=== PATIENT | male | born 1950 | race Two or more races ===

== ENCOUNTER 2021-10-29 10:10 | Outpatient (REF) | payer MEDICARE, SELFPAY ==
--- NOTE | ~2021-10-29 | XR_ITS ---
EXAMINATION: XR SACROILIAC JOINTS CLINICAL INFORMATION: Pain COMPARISON: None TECHNIQUE: 3 views of the sacroiliac joints FINDINGS: Bones and soft tissues are normal. No fracture. Alignment is anatomic. Sacroiliac joint spaces are well-maintained without erosions or surrounding sclerosis. XR/XR sacroiliac joint min 3V IMPRESSION: Normal sacroiliac joints.
== END 2021-10-29 10:11 | disposition home or self-care (01) ==
LOC: HO.XRAY 10:10
PROVIDERS: PCP Internal Medicine; Visit Provider Internal Medicine
DX: M53.3 Sacrococcygeal disorders, not elsewhere classified (principal)
CPT/HCPCS: 72202

== ENCOUNTER → 2021-12-04 10:48 | Outpatient (BNVA) | payer MEDICARE, SELFPAY | PROVIDERS: PCP Internal Medicine; Referring Provider Internal Medicine; Visit Provider Surgery | DX: R22.42 Localized swelling, mass and lump, left lower limb (principal) | CPT/HCPCS: 99202 ==

== ENCOUNTER 2022-01-29 13:28 | Outpatient (REF) | payer OTHER, SELFPAY ==
[2022-01-29 13:41] VITALS: BP 114/56; PULSE 56; RESP 18; TEMP 36.8; O2SAT 96; BMI 26.6
--- NOTE | 2022-01-29 14:12 | P.OP_ITS ---
Operative Note Operative Note Date of Service: 01/29/22 Narrative: Preop diagnosis: Subcutaneous nodule, left foot at the plantar aspect Postop diagnosis: the same Procedure: Excision of subcutaneous nodule, plantar aspect of the left foot under local anesthesia Surgeon: Tom Ramirez MD Patient is 71-year-old male with a nodule or mass subcutaneous layer of the left foot about 1 cm in diameter. He wanted proceed with excision. In this to the technique of the procedure as well as the risks, benefits, and alternatives . He was brought to the minor procedure room. He was placed in lateral decubitus position to allow exposure of the plantar aspect. This area of the left foot was prepped and draped. Lidocaine 1% was used for local anesthesia. A surgical time-out had been done earlier. I infiltrated the planned line of incision with lidocaine 1%. I made a trans verse incision using blade 15. This carried down sharply to the full-thickness skin and subcutaneous fat. I then proceeded to continue to dissect sharply the Metzenbaum scissors until I was able to see a mass that appeared to be not well- defined, with thick and fiber fibrotic consistency. I sharply dissected this off of the rest of the subcutaneous layer until this was delivered and sent as specimen. This was about 1 cm in diameter . I irrigated the area of excision and closed the incision with full-thickness nylon 3-0 interrupted sutures. Dressings were applied. The procedure was then completed. The patient tolerated procedure well. There were no complications noted. Estimated blood loss about 5 cc The patient was given wound care instructions and will be seen in the office for follow-up visit for removal sutures.
== END 2022-01-29 13:29 | disposition home or self-care (01) ==
LOC: HO.MS 13:28
PROVIDERS: PCP Internal Medicine; Visit Provider Surgery
PROC: (CPT 11422; principal; 2022-01-29 14:00)
DX: R22.42 Localized swelling, mass and lump, left lower limb (principal)
CPT/HCPCS: 11422; 88304; 88305

== ENCOUNTER → 2022-02-11 13:53 | Outpatient (BNVA) | payer OTHER, SELFPAY | PROVIDERS: PCP Internal Medicine; Visit Provider Surgery | DX: Z48.817 Encounter for surgical aftercare following surgery on the skin and subcutaneous tissue (principal); Z87.2 Personal history of diseases of the skin and subcutaneous tissue | CPT/HCPCS: 99212 ==

== ENCOUNTER 2022-03-05 13:06 | Outpatient (REF) | payer OTHER, SELFPAY ==
--- NOTE | ~2022-03-05 | US_ITS ---
EXAMINATION: US SCROTUM CLINICAL INFORMATION: Left testicular lump. COMPARISON: None TECHNIQUE: A sonogram of the scrotum was performed assessing schwartz-scale appearance and color Doppler flow. Spectral Doppler analysis of the arterial and venous flow were performed in the testes bilaterally. FINDINGS: RIGHT: Right testicle measures 3.73 x 1.82 x 3.37 cm, volume 12.0 mL. No focal testicular parenchymal lesions are visualized. Spectral Doppler analysis of the arterial and venous flow is normal in the right testis. Right epididymal head is normal except for a small epididymal cyst measuring 0.20 x 0.19 x 0.28 cm. There is a small right hydrocele. No right varicocele is seen. Right epididymal Doppler flow is normal. LEFT: Left testicle measures 2.94 x 1.76 x 2.84 cm, volume 7.82 mL. No focal testicular parenchymal lesions are visualized. Spectral Doppler analysis of the arterial and venous flow is normal in the left testis. Left epididymal head is normal in size with an anechoic cyst measuring 0.31 x 0.19 x 0.18 cm. There is a small left hydrocele is seen. Also visualized is a small left varicocele. Left epididymal Doppler flow is normal. US/US scrotum IMPRESSION: Bilateral epididymal head cysts and bilateral hydroceles. Small left varicocele. Otherwise both testes are unremarkable.
== END 2022-03-05 13:07 | disposition home or self-care (01) ==
LOC: HO.HMGCX 13:06
PROVIDERS: Visit Provider Internal Medicine
DX: N50.89 Other specified disorders of the male genital organs (principal)
CPT/HCPCS: 76870

== ENCOUNTER 2022-09-10 15:07 | Outpatient (AMB) | payer OTHER, SELFPAY ==
--- NOTE | 2022-09-07 16:02 | MHC.OFFVIS ---
Intake Intake Visit Reasons: Left hydrocele Intake Note: Patient is present for left hydrocele Allergies No Known Drug Allergies Allergy (Unknown, Verified 02/11/22 14:20) None acetaminophen Adverse Reaction (Severe, Verified 02/11/22 14:20) Unknown HPI HPI Comments History of Present Illness Details Yovanny is a pleasant male. He is seen for the following urologic conditions - left hydrocele - erectile dysfunction Left hydrocele Mild Reassurance provided Discussed time point of intervention Erectile dysfunction Progressive Discussed medication options PFSH Medical History Hypertension Subcutaneous nodule of left foot Surgical History Subcutaneous nodule of foot (~01/29/22) Social History Alcohol intake: never Patient Tobacco Use Status: Never used Tobacco Review of Systems Const Denies chills and Denies fever(s) Card Reports no additional complaints and Denies syncope Resp Denies cough GI Denies abdominal pain and Denies heartburn Reports as per HPI and Denies change in libido Neuro Denies syncope Psych Denies change in libido Endo Denies change in libido Physical Exam Const General: cooperative, healthy appearing, comfortable and no acute distress Orientation/consciousness: patient oriented x3 HEENT Face and sinus: Yes normal facial exam Mouth: moist mucous membranes Neck Neck: Yes normal visual inspection, Yes full ROM and Yes trachea midline Chest Chest palpation & inspection: normal inspection of the chest Resp Effort & Inspection: normal respiratory effort, able to speak in complete sentences and no respiratory distress GI Inspection: Yes normal to inspection Back/Spine/Pelvis Cervical Spine: normal cervical lordosis Thoracic/Lumbar Spine: thoracic and lumbar spine normal to inspection Skin General skin exam: no rashes or lesions noted Neuro General: patient oriented x3, gait normal, tone normal and moves all extremities Extrem General: Yes normal to inspection and Yes capillary refill normal Assessment & Plan Assessment & Plan (1) Erectile dysfunction: Code(s): N52.9 - Male erectile dysfunction, unspecified Plan P.r.n. follow-up Patient Instructions: Imaging studies, laboratory and physical exam results were discussed and reviewed in detail. No major barriers to patient understanding were identified. An opportunity to ask questions regarding the treatment plan was provided. All questions were answered. The patient expressed understanding and agreement with the above treatment plan. The patient is aware they should contact our office by phone for worsening of their current condition or the appearance of new urologic symptoms. Compliance is encouraged with any medications and followup testing that is ordered. It is a privilege to participate in the urologic care of your patient. If you have any questions or concerns regarding treatment for the above conditions, or other urologic issues, please do not hesitate to contact me. The office telephone contact is [phone]. This note is constructed using voice recognition software. While every effort has been made to ensure accuracy community assistant errors may have been included. Yours sincerely, Dr Delonte Dumont MD, [facility] - Urology Providers of Expert, Compassionate Care for the Genitourinary System Coding Level of Care Code New Pt Level 3 (46866) Diagnoses Erectile dysfunction N52.9
== END 2022-09-10 16:32 | disposition home or self-care (01) ==
LOC: HO.HUSH 15:07
PROVIDERS: PCP Internal Medicine; Visit Provider Urology
DX: N52.9 Male erectile dysfunction, unspecified (principal)
CPT/HCPCS: 99203; 99499

== ENCOUNTER → 2022-09-10 15:07 | Outpatient (BNVA) | payer OTHER, SELFPAY | PROVIDERS: PCP Internal Medicine; Visit Provider Urology | DX: N52.9 Male erectile dysfunction, unspecified (principal) | CPT/HCPCS: 99202 ==

== ENCOUNTER 2023-07-30 09:46 | Outpatient (REF) | payer OTHER, SELFPAY ==
[2023-07-30 15:17] LABS: Vitamin B12 587 pg/mL (200-900)
== END 2023-07-30 09:47 | disposition home or self-care (01) ==
LOC: HO.CHCLDS 09:46
PROVIDERS: Visit Provider Internal Medicine
DX: E53.8 Deficiency of other specified B group vitamins (principal)
CPT/HCPCS: 36415; 82607

== ENCOUNTER 2023-09-03 11:11 | Outpatient (REF) | payer OTHER, SELFPAY ==
--- NOTE | ~2023-09-03 | XR_ITS ---
EXAMINATION: XR HIP, RIGHT CLINICAL INFORMATION: Right hip pain COMPARISON: Lumbar spine 09/13/2019. Sacroiliac joints 10/29/2021. TECHNIQUE: 3 views of the right hip. FINDINGS: Advanced degenerative changes in the partially imaged lower lumbar spine. The bones are diffusely demineralized. Mild degenerative changes right hip with joint space narrowing and hypertrophic change. Right hip alignment preserved. XR/XR hip RT min 2V IMPRESSION: Mild degenerative changes. Bones are diffusely demineralized. Additional imaging with CT scan or MRI should be considered for better visualization as these modalities are much more sensitive for detection of fracture or other underlying pathology.
== END 2023-09-03 11:12 | disposition home or self-care (01) ==
LOC: HO.XRAY 11:11
PROVIDERS: PCP Internal Medicine; Visit Provider Internal Medicine
DX: M25.561 Pain in right knee (principal)
CPT/HCPCS: 73502

== ENCOUNTER 2024-01-12 10:47 | Outpatient (AMB) | payer OTHER, SELFPAY ==
--- NOTE | 2024-01-12 10:57 | MHC.OFFVIS ---
Intake Vital Signs 01/12/24 11:07 Height 5 ft 8 in Weight 160 lb BMI 24.3 Intake Visit Reasons: Practice Consultant- Left Dupuytren Contracture Intake Note: Yovanny 73 yr old - hand dominant male presents today for a new patient visit for his left hand ring and small finger. States his fingers are scooby inward towards his palm. States it has worsen in the last 3-4 months. States this cause him pain and swelling in his middle finger PIP joint. No injury he can recall. Hx of right hand dupuytrens contracture sx about 7 years ago. Allergies No Known Drug Allergies Allergy (Unknown, Verified 01/12/24 11:06) None acetaminophen Adverse Reaction (Severe, Verified 01/12/24 11:06) Unknown HPI Practice Consultant- Left Dupuytren Contracture HPI Details Yovanny is a 73 year old right hand dominant man who presents with complaints of left hand contractures. He reports contractures of his left ring & small fingers. He says this has been present for ~4 months He also complains of worsening pain in the base of his ring finger, particularly when his finger locks in flexion. He denies any injury. He says he exercises at the gym often, and feels somewhat limited in his activities due to his contractures He reports a hx of right dupuytrens release in ~2017. He works stocking shelves. 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 Review of Systems Const All systems reviewed & are unremarkable except as noted in HPI and below Physical Exam Vital Signs: BMI result Body Mass Index 24.3 Const General: cooperative, healthy appearing and no acute distress Orientation/consciousness: patient oriented x3 HEENT Head: Yes normocephalic and Yes atraumatic Eyes EOM: EOMs intact bilaterally Resp Effort & Inspection: normal respiratory effort and able to speak in complete sentences Cardio Jugular venous distension: no JVD Skin General skin exam: turgor normal Rashes: no rashes Neuro General: patient oriented x3 Extrem Other: Evaluation of Left Upper Extremity: The patient is alert, oriented, and in no acute distress Neuro: Median, Ulnar, Radial nerves motor and sensory intact and sensation is normal to the tips of all digits Vascular: Cap refill brisk ROM: He can bring his fingers closed to a fist, and extend all his digits Visible and palpable locking and catching of the ring finger Tender over the a1 arianne of the ring finger Dupuytren's Contractures of the left ring and small measuring: Ring: MCP 45/PIP 0 Small: MCP 60/PIP 0 With cords extending from the mid palm to about the PIP joints Skin: No lacerations or abrasions. General: No Ecchymosis. No Erythema or evidence of infection. Psych Appearance: grossly normal Affect: normal affect Attitude: cooperative Assessment & Plan Assessment & Plan (1) Dupuytren's contracture of left hand: Code(s): M72.0 - Palmar fascial fibromatosis [Dupuytren] (2) Trigger ring finger of left hand: Code(s): M65.342 - Trigger finger, left ring finger Plan Assessment & Plan: 1. Left ring finger Dupuytrens contracture MCP 45/PIP 0 2. Left small finger Dupuytrens contracture MCP 60/PIP 0 3. Left ring finger trigger finger I educated him about this condition I discussed operative and non-operative treatment options The patient would like to proceed with surgery. The risks and benefits of operative treatment were discussed with the patient and the patient wishes to proceed with surgery. These risks include, but are not limited to risk of damage to blood vessels, nerves, tendons, infection, recurrence, incomplete relief of preoperative symptoms, persistent pain, possible need for further surgery and the risks associated with regional blocks and anesthesia. The plan is to take the patient to the operating room sometime in the next few weeks for the following procedures: 1. Left ring finger partial Dupuytrens fasciectomy, under general 2. Left small finger partial Dupuytrens fasciectomy, under general 3. Left ring finger a1 arianne release, under general All of the preoperative paperwork including the consent was reviewed today. All the patient's questions were answered. The patient understands that they will be contacted by our associate professor of surgery soon to schedule this procedure He denies Diabetes, blood thinners, asthma, heart, lung, kidney issues He reports a hx of liver cirrhosis Scribed for Jocelyn Sibley MD by Lester Lopez, nuclear medical tech, on 01/12/24 at 11:35 AM, EST. Coding Level of Care Code New Pt Level 4 (58078) Diagnoses Dupuytren's contracture of left hand M72.0 Trigger ring finger of left hand M65.342
[2024-01-12 11:07] VITALS: BMI 24.3
== END 2024-01-12 11:51 | disposition home or self-care (01) ==
PROVIDERS: PCP Internal Medicine; Visit Provider Orthopaedic Surgery
DX: M72.0 Palmar fascial fibromatosis [Dupuytren] (principal); M65.342 Trigger finger, left ring finger
CPT/HCPCS: 99204

== ENCOUNTER → 2024-01-12 10:47 | Outpatient (BNVA) | payer OTHER, SELFPAY | PROVIDERS: PCP Internal Medicine; Visit Provider Orthopaedic Surgery | DX: M72.0 Palmar fascial fibromatosis [Dupuytren] (principal); M65.342 Trigger finger, left ring finger | CPT/HCPCS: 99202 ==

== ENCOUNTER 2024-03-30 11:27 | Outpatient (REF) | payer OTHER, SELFPAY ==
[2024-03-30 14:29] LABS: MANUAL DIFF FLAG NO
[2024-03-30 14:36] LABS: Basophils Percent Auto 0.8 % (0-2); Eosinophils Absolute Auto 0.3 X10*3/uL (0.0-0.4); Eosinophils Percent Auto 6.6 % (0-4); Hematocrit 42.9 % (42.0-52.0); Hemoglobin 13.6 g/dl (14.0-18.0); Imm Gran Abs Auto 0.01 X10*3/uL (0.00-0.03); Imm Gran Pct Auto 0.2 % (0.0-0.4); Lymphocytes Absolute Auto 1.3 X10*3/uL (1.2-4.9); Lymphocytes Percent Auto 25.7 % (20-40); Mean Corpuscular HGB Conc 31.7 g/dl (31.0-36.0); Mean Corpuscular Hemoglobin 27.4 pg (27.0-33.0); Mean Corpuscular Volume 86.5 fL (80.0-98.0); Mean Platelet Volume 11.6 fL (9.4-12.4); Monocytes Absolute Auto 0.6 X10*3/uL (0.1-1.2); Monocytes Percent Auto 12.1 % (2-11); Neutrophils Absolute Auto 2.7 x10*3/uL (2.0-8.3); Neutrophils Percent Auto 54.6 % (45-73); Platelet Count 108 X10*3/uL (160-400); Red Blood Count 4.96 X10*6/uL (4.60-5.80); Red Cell Distribution Width 14.1 % (11.0-16.0); White Blood Count 4.9 X10*3/uL (4.8-10.8)
[2024-03-30 15:16] LABS: Alanine Aminotransferase 37 U/L (0-40); Albumin Level 3.9 g/dL (3.5-5.0); Alkaline Phosphatase 62 U/L (39-117); Anion Gap 11 (12-20); Aspartate Amino Transferase 40 U/L (5-37); Bilirubin Total 0.5 mg/dL (0.0-1.0); Blood Urea Nitrogen 30 mg/dL (9-16); Calcium 9.5 mg/dL (8.4-10.2); Carbon Dioxide 26 mmol/L (22-29); Chloride 107 mmol/L (96-108); Cholesterol 174 mg/dL (<200); Estimated Glomerular Filt Rate 48; Glucose Random 82 mg/dL (60-115); HDL Cholesterol 50 mg/dL (>40); LDL Cholesterol Calculated 105 mg/dL (<100); Potassium 4.3 mmol/L (3.3-5.1); Sodium 140 mmol/L (135-145); Total Protein 7.4 g/dL (6.5-8.0); Triglycerides 97 mg/dL (<150)
[2024-03-30 15:20] LABS: TSH reflex Free T4 1.66 uIU/mL (0.32-4.0); Vitamin D 25-OH Total 30.6 ng/mL (>30)
== END 2024-03-30 11:28 | disposition home or self-care (01) ==
LOC: HO.CHCLDS 11:27
PROVIDERS: Visit Provider Internal Medicine
DX: I10 Essential (primary) hypertension (principal); B18.2 Chronic viral hepatitis C; K74.60 Unspecified cirrhosis of liver
CPT/HCPCS: 36415; 80053; 80061; 82306; 84443; 85025

== ENCOUNTER 2024-07-11 13:08 | Outpatient (REF) | payer OTHER, SELFPAY ==
[2024-07-11 15:10] LABS: Anion Gap 11 (12-20); Blood Urea Nitrogen 32 mg/dL (9-16); Calcium 9.5 mg/dL (8.4-10.2); Carbon Dioxide 23 mmol/L (22-29); Chloride 110 mmol/L (96-108); Estimated Glomerular Filt Rate 47; Glucose Random 104 mg/dL (60-115); Potassium 4.3 mmol/L (3.3-5.1); Sodium 140 mmol/L (135-145)
== END 2024-07-11 13:09 | disposition home or self-care (01) ==
LOC: HO.CHCLDS 13:08
PROVIDERS: Visit Provider Emergency Medicine
DX: R79.89 Other specified abnormal findings of blood chemistry (principal)
CPT/HCPCS: 36415; 80048

== ENCOUNTER 2024-09-22 15:51 | Outpatient (REF) | payer OTHER, SELFPAY ==
[2024-09-22 17:54] LABS: MANUAL DIFF FLAG NO
[2024-09-22 18:00] LABS: Basophils Absolute Auto 0.1 X10*3/uL (0.0-0.2); Basophils Percent Auto 0.9 % (0-2); Eosinophils Absolute Auto 0.3 X10*3/uL (0.0-0.4); Eosinophils Percent Auto 6.2 % (0-4); Hematocrit 42.3 % (42.0-52.0); Hemoglobin 13.7 g/dl (14.0-18.0); Imm Gran Abs Auto 0.01 X10*3/uL (0.00-0.03); Imm Gran Pct Auto 0.2 % (0.0-0.4); Lymphocytes Absolute Auto 1.5 X10*3/uL (1.2-4.9); Lymphocytes Percent Auto 26.9 % (20-40); Mean Corpuscular HGB Conc 32.4 g/dl (31.0-36.0); Mean Corpuscular Hemoglobin 27.3 pg (27.0-33.0); Mean Corpuscular Volume 84.3 fL (80.0-98.0); Mean Platelet Volume 11.8 fL (9.4-12.4); Monocytes Absolute Auto 0.6 X10*3/uL (0.1-1.2); Monocytes Percent Auto 11.2 % (2-11); Neutrophils Percent Auto 54.6 % (45-73); Platelet Count 121 X10*3/uL (160-400); Red Blood Count 5.02 X10*6/uL (4.60-5.80); Red Cell Distribution Width 14.4 % (11.0-16.0); White Blood Count 5.5 X10*3/uL (4.8-10.8)
[2024-09-22 18:19] LABS: Alanine Aminotransferase 59 U/L (0-40); Alkaline Phosphatase 83 U/L (39-117); Anion Gap 7 (12-20); Aspartate Amino Transferase 60 U/L (5-37); Bilirubin Total 0.4 mg/dL (0.0-1.0); Blood Urea Nitrogen 23 mg/dL (9-16); Calcium 9.7 mg/dL (8.4-10.2); Carbon Dioxide 31 mmol/L (22-29); Chloride 104 mmol/L (96-108); Estimated Glomerular Filt Rate 55; Glucose Random 96 mg/dL (60-115); Magnesium 2.2 mg/dL (1.6-2.6); Potassium 4.4 mmol/L (3.3-5.1); Sodium 138 mmol/L (135-145); Total Protein 7.6 g/dL (6.5-8.0)
[2024-09-22 18:38] LABS: TSH reflex Free T4 2.62 uIU/mL (0.32-4.0); Vitamin D 25-OH Total 50.5 ng/mL (>30)
[2024-09-22 18:49] LABS: Folate 13.9 ng/mL (> or = 4.0); Vitamin B12 752 pg/mL (200-900)
[2024-09-22 18:50] LABS: Folate 14.2 ng/mL (> or = 4.0); Vitamin B12 751 pg/mL (200-900)
== END 2024-09-22 15:52 | disposition home or self-care (01) ==
LOC: HO.CHCLDS 15:51
PROVIDERS: Visit Provider Internal Medicine
DX: R53.83 Other fatigue (principal)
CPT/HCPCS: 36415; 80053; 82306; 82607; 82746; 83735; 84443; 85025

== ENCOUNTER 2024-09-25 11:18 | Outpatient (REF) | payer OTHER, SELFPAY | END 2024-09-25 11:19 | disposition home or self-care (01) | LOC: HO.XRAY 11:18 | PROVIDERS: PCP Internal Medicine; Visit Provider Internal Medicine | DX: R05.2 Subacute cough (principal) | CPT/HCPCS: 71046 ==

== ENCOUNTER 2024-11-21 14:25 | Outpatient (AMB) | payer OTHER, SELFPAY ==
--- NOTE | 2024-11-21 14:48 | MHC.OFFVIS ---
Vital Signs 11/21/24 14:51 Height 5 ft 8 in Weight 160 lb BMI 24.3 Handedness Right Intake Visit Reasons: O/V- LT trig RF/dupuytrens/discuss sx Intake Note: Yovanny, 73 year old right hand dominant man presents today to discuss surgical repair for his Dupuytren's contracture of left hand and trigger ring finger of left hand and sign consent. He reports a hx of right dupuytrens release in ~2017. He works stocking shelves. Allergies No Known Drug Allergies Allergy (Unknown, Verified 11/21/24 14:50) None acetaminophen Adverse Reaction (Severe, Verified 11/21/24 14:50) Unknown HPI HPI O/V- LT trig RF/dupuytrens/discuss sx: Details: Yovanny is a 74 year old right hand dominant man who returns to discuss his left Dupuytrens contracture Previously seen for contractures of his left ring & small fingers, along with painful locking of his left ring finger. Now he complains of inability to bring his small and ring fingers close to a fist. He denies any known injury. He says he exercises at the gym often, and feels somewhat limited in his activities due to his contractures He reports a hx of right dupuytrens release in ~2017 at an outside facility. 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 Review of Systems Const All systems reviewed & are unremarkable except as noted in HPI and below Physical Exam Vital Signs: BMI result Body Mass Index 24.3 Const General: no acute distress and alert Orientation/consciousness: patient oriented x3 Neuro General: patient oriented x3 Extrem Other: Evaluation of Left Upper Extremity: The patient is alert, oriented, and in no acute distress Neuro: Median, Ulnar, Radial nerves motor and sensory intact and sensation is normal to the tips of all digits Vascular: Cap refill brisk ROM: He has significant stiffness of his ring & small fingers, initially only able to bring them ~5-6cm from his palm We worked on ROM exercises today, and before leaving clinic he could passively bring his fingertips to touch his palm, and he was able to actively hold them there No locking or catching seen today, though his active flexion of the ring finger is quite limited today. He has significant stiffness in his ring & small finger PIP & DIP joints as noted above, good ROM in the MCP joints Dupuytren's Contractures of the left ring and small measuring: Ring: MCP 45/PIP 0 Small: MCP 60/PIP 0 With cords extending from the mid palm to about the PIP joints Psych Appearance: grossly normal Affect: normal affect Attitude: cooperative Office Procedures AMB Fracture Care Details: Insert [id number], no fractures Fracture Billing Code: Fracture Billing Code Assessment & Plan Assessment & Plan (1) Dupuytren's contracture of left hand: Code(s): M72.0 - Palmar fascial fibromatosis [Dupuytren] Category: Medical (2) Trigger ring finger of left hand: Code(s): M65.342 - Trigger finger, left ring finger Category: Medical (3) Stiffness of finger joint of left hand: Code(s): M25.642 - Stiffness of left hand, not elsewhere classified Category: Medical Plan Assessment & Plan: 1. Left ring finger Dupuytrens contracture MCP 45/PIP 0 2. Left small finger Dupuytrens contracture MCP 60/PIP 0 3. Left ring finger trigger finger 4. Left ring & small finger stiffness Please note that greater than 15 minutes was spent working on left ring and small finger range of motion exercises in clinic today I educated him about this condition I discussed operative and non-operative treatment options The patient would like to proceed with surgery. However, Prior to surgery he should complete a course of OT hand therapy to work on his left small and ring finger finger stiffness. Last visit he was able to bring the fingers of his left hand close to a fist. I want him to be able to bring his fingers close to a fist actively before proceeding with surgery for his Dupuytren's contractures. Should the left ring finger trigger finger show up again, we would note that and proceed with an A1 arianne release at the time of Dupuytren's palmar fasciectomy. I ordered a course of OT hand therapy to work on ROM exercises He will work on ROM exercises at home He will follow up in 6-8 weeks or a ROM check. If he has improved his ROM we can again discuss proceeding with surgery. He is in agreement with this Scribed for Jocelyn Sibley MD by Lester Lopez, medical billing service, on 11/21/24 at 3:15 PM, EST. Orders: Orders OT Evaluation and Treatment Today M25.642 - Stiffness of left hand, not elsewhere classified, M65.342 - Trigger finger, left ring finger, M72.0 - Palmar fascial fibromatosis [Dupuytren] Coding Level of Care Code Est Pt Level 4 (85827) Diagnoses Dupuytren's contracture of left hand M72.0 Trigger ring finger of left hand M65.342 Stiffness of finger joint of left hand M25.642 CPT Codes Fracture Care - Fracture Billing Code: Fracture Billing Code ([id number])
[2024-11-21 14:51] VITALS: BMI 24.3
== END 2024-11-21 15:50 | disposition home or self-care (01) ==
PROVIDERS: PCP Internal Medicine; Visit Provider Orthopaedic Surgery
DX: M72.0 Palmar fascial fibromatosis [Dupuytren] (principal); M65.342 Trigger finger, left ring finger; M25.642 Stiffness of left hand, not elsewhere classified
CPT/HCPCS: 99213

== ENCOUNTER → 2024-11-21 14:25 | Outpatient (BNVA) | payer OTHER, SELFPAY | PROVIDERS: PCP Internal Medicine; Visit Provider Orthopaedic Surgery | DX: M72.0 Palmar fascial fibromatosis [Dupuytren] (principal); M65.342 Trigger finger, left ring finger; M25.642 Stiffness of left hand, not elsewhere classified | CPT/HCPCS: 97140; 99212 ==

== ENCOUNTER 2025-01-22 13:32 | Outpatient (RCR) | payer OTHER, SELFPAY ==
--- NOTE | 2024-12-27 13:22 | MHC.OT.EP ---
[address] [phone] Occupational Therapy Plan of Care Patient Name: Yovanny Lopez Date of Evaluation: 12/26/24 Diagnosis: STIFFNESS OF FINGER JOINTS Pain Location: 0/10 AT REST 8-9/10 WITH FORCEFUL FIST Pain Score: 0-9/10 Pain Scale Used: Numeric (0 - 10) Aggravating Factors: PASSIVE HAND EXERCISES Alleviating Factors: DOES NOT TAKE MEDICATION, SOAKS IN HOT WATER Assessment: MR DILIP LOPEZ REPORTS A >5 YEAR HISTORY OF DUPUYTRENS CONTRACTURE, WITH GRADUAL WORSENING OF SYMPTOMS. HE IS REFERED TO OT TO ADDRESS L SMALL FINGER AND RING FINGER ROM, PRIOR TO SURGICAL RELEASE. HE REPORTS DIFFICULTIES WITH USING HIS HANDS TO PLAY MUSICAL INSTRUMENTS; AND A 23% LIMITATION IS REPORTED PER THE QUICK DASH ASSESSMENT. ONGOING SKILLED OT IS WARRANTED TO ADDRESS THE AREAS MENTIONED BELOW. 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 Thank you once again for your referral.
--- NOTE | 2025-02-19 14:34 | MHC.OT.DC ---
[address] [phone] F: [phone] Occupational Therapy Discharge Note Patient Name: Yovanny Lopez Provider: Jocelyn Sibley Diagnosis: STIFFNESS OF FINGER JOINTS Date of Evaluation: 12/22/24 Date of Discharge: 02/19/25 Treatments to Date: 7 Cancellations to Date: 0 No Shows to Date: 0 Discharge Status: Achieved Goals Improved Function Independent with HEP Discharge Summary: MR DILIP LOPEZ HAS PROGRESSED WELL WITH HIS OT GOALS. HE WAS MOTIVATED AND COMPLIANT WITH HIS HEP. HE IS READY TO PROGRESS TO A HOME BASED PROGRAM. RECOMMEND F/U WITH MD TO FURTHER DISCUSS SURGERY PLANS. Electronically Signed By: BRIAN WISE OTR/Thuy Reviewed/agree with student documentation: N/A Therapist: Please Sign and return to therapist, thank you for your referral.
== END 2025-02-19 14:35 | disposition home or self-care (01) ==
LOC: HO.OT 13:32
PROVIDERS: PCP Internal Medicine; Visit Provider Orthopaedic Surgery
DX: M25.642 Stiffness of left hand, not elsewhere classified (principal); M65.342 Trigger finger, left ring finger; M72.0 Palmar fascial fibromatosis [Dupuytren]
CPT/HCPCS: 29130; 97035; 97110; 97140; 97166; 97760

== ENCOUNTER 2025-06-11 11:37 | Outpatient (REF) | payer OTHER, SELFPAY ==
--- NOTE | ~2025-06-11 | XR_ITS ---
EXAMINATION: XR FOOT 3 OR MORE VIEWS RIGHT HISTORY: bunion right foot COMPARISON: There are no prior studies available for comparison. FINDINGS: Three views of the right foot are submitted. Osseous mineralization is normal. There is no fracture or dislocation. There is mild osteoarthritis and hallux valgus formerly involving the MTP joint of the great toe. The remaining joint spaces are maintained.. The soft tissues are unremarkable. XR/XR foot RT min 3V IMPRESSION: Mild osteoarthritis and hallux valgus deformity of the 1st MTP joint. Electronically signed by: Shahbaz Schmid MD 06/11/2025 11:55 AM EDT
--- OUTSIDE RECORDS SUMMARY | 2025-06-11 12:26 | XMS_ITS | Encounter Summary ---
Author Organization [employer] Address [address] [facility] [facility] [address] [address] Care Team Providers Care Information Technology Architect Name Role Phone Alfredo Love MD Primary Care Provider [phone] Reason for Visit * Reason Onset Date Comments triage 02/02/2023 Encounter Details Date Type Department Care Team ([facility] st Contact Info) Description 02/02/2023 Telephone [facility] [address] [place] [address] Alfredo Love MD [address], [place] [phone] triage Social History Tobacco Use Types Packs/Day Years Used Date Smoking Tobacco: Never Smokeless Tobacco: Never Sex and Gender Information Value Date Recorded Sex Assigned at Male 09/07/2022 10:22 AM EDT Legal Sex Male 10:22 AM EDT Gender Identity Male 09/07/2022 10:22 AM EDT Sexual Orientation Straight 09/07/2022 10 :22 AM EDT COVID-19 Exposure Response Date Recorded In the last 10 days, have yo u been in contact with someone who was confirmed or suspected to have Coronavirus/COVID-19? No / Unsure 02/02/2023 2:34 PM EDT documented as of this encounter Miscellaneous Notes * Telephone Encounter - Omayra Hernandez RN - 02/02/2023 2:03 PM EDT Triage call Pt reports having Covid 2-3 weeks ago. Pt has had a dry cough again started 4 days ago,sneezing, nasal congestion and right lung hurts when coughing. Pt has had a hx of pneumonia in the past. Pt denies difficulty breathing and is neg for fever. Pt is advised to be seen by provider today in [facility] , Pt agrees with disposition and home care reviewed. Protocol Used: Cough (Adult) Protocol-Based Disposition: See in Office or Video Visit Today or Tomorrow Video visit not offered Positive Triage Questions: * Continuous (nonstop) coughing interferes with work or school and no improvement using cough treatment per Care Advice * Patient wants to be seen * All higher-acuity triage questions were negative Care Advice Discussed: * Reassurance and Education - Cough * Cough Medicines * Prevent Dehydration * Humidifier * Fever Medicines * Reasons To Call Back - Difficulty breathing - Cough lasts more than 3 weeks - Fever lasts more than 3 days - You become worse * Telephone Encounter - Ede Jimenez - 02/02/2023 11:08 AM EDT Symptom: Cough Outcome: Schedule an urgent appointment (within 1 hour) or talk to a nurse or provider soon Reason: Wheezing The caller accepted this outcome documented in this encounter Plan of Treatment Not on file documented as of this encounter Visit Diagnoses Not on filedocumented in this encounter Care Teams Information Technology Architect Relationship Specialty Start Date End Date Alfredo Love MD [address] [place] [id number] PCP - General Internal Medicine 05/23/13 documented as of this encounter
== END 2025-06-11 11:38 | disposition home or self-care (01) ==
LOC: HO.HHCX 11:37
PROVIDERS: Visit Provider Internal Medicine
DX: M21.611 Bunion of right foot (principal)
CPT/HCPCS: 73630

== ENCOUNTER → 2025-06-11 11:37 | Outpatient (BNV) | payer OTHER, SELFPAY | PROVIDERS: Visit Provider Radiology Diagnostic Radiology | DX: M20.11 Hallux valgus (acquired), right foot (principal) | CPT/HCPCS: 73630 ==

== ENCOUNTER 2025-10-29 11:48 | Outpatient (REF) | payer OTHER, SELFPAY ==
--- NOTE | ~2025-10-29 | XR_ITS ---
EXAMINATION: XR CHEST 2 VIEWS HISTORY: 75 y.o male with persistent cough COMPARISON: Comparison is made with the prior examination dated 09/25/2024. FINDINGS: PA and lateral views of the chest are submitted. The lungs are expanded and clear. There is no pleural effusion, pneumothorax, or pulmonary vascular congestion. The heart is normal in size. The bones are intact. XR/XR chest 2V IMPRESSION: No acute cardiopulmonary abnormality. Electronically signed by: Shahbaz Schmid MD 10/29/2025 12:33 PM [facility]
--- OUTSIDE RECORDS SUMMARY | 2025-10-29 11:00 | XMS_ITS | Encounter Summary ---
Author Organization [employer] Address [address] [place] [address] Care Team Providers Care Drilling Superintendent Name Role Phone Alfredo Love MD Primary Care Provider [phone] Reason for Visit * Reason Comments Cough Encounter Details Date Type Department Care Team ([facility] Contact Info) Description 10/29/2025 11:00 AM EST Office Visit [facility] [address] [place], [place] [phone] [facility] [address] [place], [place] [phone] COVID-19 (Primary Dx); Cough in adult patient Social History Tobacco Use Types Packs/Day Years Used Date Smoking Tobacco: Never Passive Smoke Exposure: Never Smokeless Tobacco: Never Tobacco Cessation:Counseling Given: Not Answered Depression Answer Date Recorded Patient Health Questionnaire-9 Score 11 01/09/2025 Patient Health Questionnaire-9 Score 11 01/09/2025 Last PHQ-9: Questionnaire Data Not on file 0 01/09/2025 Housing Stability Answer Date Recorded What is your housing situation today? I have quang milner 09/15/[address] you li ve. Do you have problems with any of the following? None of the above 09/15/2024 Food Insecurity Answer Date Recorded Within the past 12 months, y ou worried that your food would run out before you got money to buy more: Often true 01/09/2025 Within the past 12 months,th e food you bought just didn't last and you didn't have enough money to get more: Often true 02/2025 Transportation Answer Date Recorded In the past 12 months, has l ack of transportation kept you from medical appts, meetings, work or from getting things needed for daily living? No 09/15/2024 Utilities Answer Date Recorded In the past 12 months, has t he electric, gas, oil or water company threatened to shut off services in your home? Yes 12/21/2024 Depression Answer Date Recorded Patient Health Questionnaire-2 Score 3 01/09/2025 Internet Access Answer Date Recorded Internet Access Q1 No 12/21/2024 Internet Access Q2 I cannot afford it 12/21/2024 Sex and Gender Information Value Date Recorded Sex Assigned at Male 09/07/2022 10:22 AM EDT Legal Sex Male 10:22 AM EDT Gender Identity Male 09/07/2022 10:22 AM EDT Sexual Orientation Straight 09/07/2022 10 :22 AM EDT documented as of this encounter Last Filed Vital Signs Vital Sign Reading Time Taken Comments Blood Pressure 124/85 10/29/2025 11:02 AM EST Pulse 70 10/29/2025 11:02 AM EST Temperature 36.8 C (98.2 F) 10/29/2025 11:02 AM EST Respiratory Rate 18 10/29/2025 11:02 AM EST Oxygen Saturation 97% 10/29/2025 11:02 AM EST Inhaled Oxygen Concentration - - Weight 77.6 kg (171 lb) 10/29/2025 11:02 AM EST Height - - Body Mass Index 26 04/12/2025 11:34 AM EDT documented in this encounter Progress Notes * [facility], [facility] - 10/29/2025 11:00 AM EST SUBJECTIVE: Yovanny Dueñas is a 75 y.o. year old male with hypertension, hepatic cirrhosis s/t HCV who presents for evaluation of persistent cough HPI Cough and Respiratory Symptoms - Cough present for several months, worsened in the past few days - Sensation of something in lungs, described as dust in lungs - Cough productive of mucus, noted to be darkish; no longer present - Sensation felt more on the right side - No fever reported - Denies sore throat - Denies vomiting, nausea, diarrhea - No weight loss - No significant smoking hx - No noticeable shortness of breath or wheezing beyond baseline - History of inhaler use with mild improvement Exposure History - Works at [employer], 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 HENT: Negative for congestion, ear discharge, ear pain, rhinorrhea, sinus pressure and sore throat. Eyes: Negative for pain and visual disturbance. Respiratory: Positive for cough. Negative for chest tightness, shortness of breath and wheezing. Cardiovascular: Negative for chest pain. Gastrointestinal: Negative for abdominal pain, blood in stool, constipation, diarrhea, nausea and vomiting. Genitourinary: Negative for decreased urine volume. Musculoskeletal: Negative for joint swelling. Neurological: Negative for dizziness and headaches. OBJECTIVE: Vitals: 10/29/25 1102 BP: 124/85 Pulse: 70 Resp: 18 Temp: 98.2 ??F (36.8 ??C) SpO2: 97% Physical Exam Constitutional: General: He is not in acute distress. Appearance: Normal appearance. HENT: Right Ear: Tympanic membrane, ear canal and external ear normal. Left Ear: Tympanic membrane, ear canal and external ear normal. Nose: No congestion or rhinorrhea. Mouth/Throat: Pharynx: No oropharyngeal exudate or posterior oropharyngeal erythema. Eyes: Conjunctiva/sclera: Conjunctivae normal. Pupils: Pupils are equal, round, and reactive to light. Cardiovascular: Rate and Rhythm: Normal rate and regular rhythm. Heart sounds: Normal heart sounds. Pulmonary: Effort: Pulmonary effort is normal. Breath sounds: Normal breath sounds. Abdominal: Palpations: Abdomen is soft. Tenderness: There is no abdominal tenderness. Lymphadenopathy: Cervical: No cervical adenopathy. Skin: General: Skin is warm and dry. Neurological: Mental Status: He is alert and oriented to person, place, and time. Psychiatric: Mood and Affect: Mood normal. Behavior: Behavior normal. ASSESSMENT/PLAN Office Visit on 10/29/2025 Component Date Value Ref Range Status Influenza B 10/29/2025 Negative Negative, Indeterminate Final Influenza A 10/29/2025 Negative Negative, Indeterminate Final Rapid COVID Ag 10/29/2025 Positive Final COVID-19 infection: - Mild case of COVID-19. - Prescribed Paxlovid for 5 days (renal dosing) to reduce severity and duration of illness. Recommended isolation for 5 days from symptom onset, followed by 5 days of mask use around others. Providedwork note per current guidelines. Will review medication list for potential drug interactions with Paxlovid. Will call with chest X-ray results if further treatment is needed. - Risks and side effects: Discussed potential gastrointestinal side effects of Paxlovid, including abdominal pain, diarrhea, and nausea. Advised to take medication with food and to contact clinic if unable to tolerate medication Cough in adult patient: - Chronic cough with recent worsening. - Ordered chest X-ray to evaluate for pneumonia or other pulmonary pathology. Advised follow-up if cough persists beyond 2 weeks after completion of COVID-19 treatment. Recommended follow-up with primary care provider if symptoms do not improve. Diagnosis Plan 1. COVID-19 Nirmatrelvir&Ritonavir 150/100 (Paxlovid, 150/100,) 10 x 150 MG & 10 x 100MG tablet therapy pack 2. Cough in adult patient Influenza B (ID NOW Rapid Molecular) Influenza A (ID NOW Rapid Molecular) POCT Rapid COVID Ag XR Chest 2 Views XR Chest 2 Views This note was drafted using Ambient (AI) technology. The patient/patient's guardian has been informed and has consented to the use of this technology: Yes Follow Up: PRN Medications Ordered Prior to Encounter[2] Bengali Translation: N/a [1] Patient Active Problem List Diagnosis Backache Hepatic cirrhosis due to chronic hepatitis C infection (CMS/HCC) (HCC) Hypertensive disorder Hypoglycemia Primary osteoarthritis involving multiple joints Pruritic rash Vertigo Dupuytren contracture Alcohol dependence in remission (CMS/HCC) (HCC) Bedbug bite Chronic hepatitis C virus infection (CMS/HCC) (HCC) Moderate episode of recurrent major depressive disorder (CMS/HCC) (HCC) Tubular adenoma of colon [2] Current Outpatient Medications on File Prior to Visit Medication Sig Dispense Refill albuterol 108 (90 Base) MCG/ACT inhaler INHALE 2 PUFFS EVERY 6 HOURS IF NEEDED FOR WHEEZING. 18 g 11 albuterol 108 (90 Base) MCG/ACT inhaler Inhale 2 puffs every 4 (four) hours if needed for wheezing.18 g 0 B-D 3CC LUER-MEHUL SYR 25GX1 25G X 1 3 ML misc USE 1 SYRINGE BY INTRAMUSCULAR ROUTE ONCE A MONTH. FOR B12 INJECTIONS (Patient not taking: Reported on 08/30/2025) baclofen (Lioresal) 10 MG tablet Take 1 tablet (10 mg) by mouth 3 times daily. (Patient not taking:Reported on 08/30/2025) 30 tablet 0 cetirizine (ZyrTEC) 10 MG tablet Take 1 tablet (10 mg) by mouth in the morning. (Patient not taking: Reported on 08/30/2025) 90 tablet 0 clotrimazole (Lotrimin) 1 % cream Apply topically 2 times daily. 40 g 1 cyanocobalamin ([employer] B-12) 500 MCG tablet Take 1 tablet (500 mcg) by mouth in the morning. 90 tablet3 Diclofenac Sodium 1 % gel APPLY 2 GRAMS TOPICALLY TO THE AFFECTED AREA FOUR TIMES A DAY 100 g 1 Diclofenac Sodium 1 % gel apply 2 gram by topical route 4 times every day to the affected area(s) Strength: 1 % 100 g 2 fluticasone (Flonase) 50 MCG/ACT nasal spray Administer 1-2 sprays into each nostril Once per day. Shake gently. Before first use, prime pump. After use, clean tip and replace cap. 16 g 11 FREESTYLE LITE test strip Use to test blood sugar 1 times daily (Patient not taking: Reported on 08/30/2025) 100 each 12 FREESTYLE LITE test strip 1 each by Other route Once per day. (Patient not taking: Reported on 08/30/2025) 100 each 11 glucose 4 g chewable tablet Chew 4 tablets (16 g) if needed for low blood sugar. (Patient not taking: Reported on 08/30/2025) 50 tablet 12 glucose blood test strip To check the FS daily. (Patient not taking: Reported on 08/30/2025) 100 each 12 hydroCHLOROthiazide (HYDRODiuril) 25 MG tablet TAKE 1 TABLET BY MOUTH EVERY DAY IN THE MORNING 90 tablet 3 hydrocortisone 2.5 % lotion Apply topically 2 times daily. 118 mL 0 hydrOXYzine HCl (Atarax) 10 MG tablet TAKE 1 TABLET BY MOUTH EVERY 8 HOURS IF NEEDED FOR ITCHING. 270 tablet 1 Lancets misc Use to test blood sugar 2 times daily 100 each 0 nadolol (Corgard) 20 MG tablet Take 1 tablet by mouth at bed time. (Patient not taking: Reported on08/30/2025) naproxen (Naprosyn) 500 MG tablet Take 1 tablet (500 mg) by mouth with breakfast and with evening meal. (Patient not taking: Reported on 08/30/2025) 30 tablet 1 permethrin (Elimite) 5 % cream APPLY TO SKIN FROM HAIRLINE TO TOES AND WASH OFF 8-10 HOURS LATER. 60 g 0 sodium chloride ([place] Nasal [place]) 0.65 % nasal spray 1-2 sprays on each nostril every 2-3 hours as needed for nasal congestion 30 mL 1 Syringe/Needle, Disp, (B-D 3CC LUER-MEHUL SYR 25GX1 ) 25G X 1 3 ML misc USE 1 SYRINGE BY INTRAMUSCULAR ROUTE ONCE A MONTH. FOR B12 INJECTIONS (Patient not taking: Reported on 08/30/2025) 1 each 11 triamcinolone (Kenalog) 0.1 % cream Apply topically if needed in the morning and at bedtime for rash. Apply sparingly 30 g 0 vardenafil (Levitra) 20 MG tablet Take 20 mg by mouth if needed each day. (Patient not taking: Reported on 08/30/2025) vardenafil (Levitra) 20 MG tablet Take 1 tablet (20 mg) by mouth if needed each day for erectile dysfunction. (Patient not taking: Reported on 08/30/2025) 10 tablet 0 vardenafil (Levitra) 20 MG tablet TAKE 1 TABLET BY MOUTH EVERY DAY IF NEEDED FOR ERECTILE DYSFUNCTION (Patient not taking: Reported on 08/30/2025) 10 tablet 0 No current facility-administered medications on file prior to visit. documented in this encounter Plan of Treatment Upcoming Encounters Date Type Department Care Team (Late st Contact Info) Description 11/14/2025 11:00 AM EST Office Visit [facility] [address] [place] [address] Ford Silver DMD [address] [place] [address] 02/18/2026 9:30 AM EDT Office Visit [facility] [address] [place] [address] Gonzalez Love documented as of this encounter Procedures Procedure Name Priority Date/Time Associated Diagnosis Comments XR CHEST 2 VIEWS Routine 10/29/2025 12:1 7 PM EST Cough in adult patient POCT INFLUENZA B (ID NOW RAPID MOLECULAR) Routine 10/29/2025 11:16 AM EST Cough in adult patient POCT INFLUENZA A (ID NOW RAPID MOLECULAR) Routine 10/29/2025 11:16 AM EST Cough in adult patient POCT RAPID COVID ANTIGEN Routine 10/29/2025 11:16 AM EST Cough in adult patient documented in this encounter Results * XR Chest 2 Views (10/29/2025 12:17 PM EST) Anatomical Region Laterality Modality Chest Radiographic Sandhya ging 10/29/2025 12:1 7 PM EST Narrative 10/29/2025 12:36 PM EST [address] [address] XRay Report Signed Patient: Yovanny Rojo MR#: [id number] : 1950 Acct:[id number] Age/Sex: 75 / M ADM Date: 10/29/25 Loc: [facility] Attending Dr: Audrey CARCAMO Ordering Physician: Audrey Ross Date of Service: 10/29/25 Procedure(s): XR chest 2V Accession Number(s): [id number] cc: Audrey Ross Reason for Exam: 75 y.o male with persistent cough EXAMINATION: XR CHEST 2 VIEWS HISTORY: 75 y.o male with persistent cough COMPARISON: Comparison is made with the prior examination dated 09/25/2024. FINDINGS: PA and lateral views of the chest are submitted. The lungs are expanded and clear. There is no pleural effusion, pneumothorax, or pulmonary vascular congestion. The heart is normal in size. The bones are intact. XR/XR chest 2V IMPRESSION: No acute cardiopulmonary abnormality. Electronically signed by: Shahbaz Schmid MD 10/29/2025 12:33 PM EST RP Dictated By: Shahbaz Schmid MD Signed By: <Electronically signed by Shahbaz Schmid MD in OV> 10/29/25 1233 DD/ 1217 TD/TT: 10/29/25 1224 Water Use Inspector: Procedure Note Sandrajose martinter, Image - 10/29/2025 [facility] [address] [place] [address] XRay Report Signed Patient: Yovanny Rojo AMR#: [id number] : 2Acct:[id number] Age/Sex: 75 / MADM Date: 10/29/25 [facility]: Audrey Ross [facility] Ordering Physician: Audrey Ross Date of Service: 10/29/25 Procedure(s): XR chest 2V Accession Number(s): [id number] cc: Audrey Ross [facility] Reason for Exam: 75 y.o male with persistent cough EXAMINATION: XR CHEST 2 VIEWS HISTORY: 75 y.o male with persistent cough COMPARISON: Comparison is made with the prior examination dated 09/25/2024. FINDINGS: PA and lateral views of the chest are submitted. The lungs are expanded and clear. There is no pleural effusion, pneumothorax, or pulmonary vascular congestion. The heart is normal in size. The bones are intact. XR/XR chest 2V IMPRESSION: No acute cardiopulmonary abnormality. Electronically signed by: Shahbaz Schmid MD 10/29/2025 12:33 PM EST Dictated By: Shahbaz Schmid MD Signed By: <Electronically signed by Shahbaz Schmid MD in OV> 10/29/25 1233 DD/ 1217 TD/TT: 10/29/25 1224 Water Use Inspector: [facility] IMG XR PROCEDURES Edited Resu lt - Final * (ABNORMAL) POCT Rapid COVID Ag (10/29/2025 11:16 AM EST) Rapid COVID Ag Positive Swab 10/29/2025 11:1 6 AM EST us Audrey Heflin COLD STRIP FEEDER POINT OF CARE TEST ENTER/EDIT ORDERABLES Final Result * Influenza A (ID NOW Rapid Molecular) (10/29/2025 11:16 AM EST) Influenza A Negative Negative, Indeterminate [facility] Swab 10/29/2025 11:1 6 AM EST [facility] COLD STRIP FEEDER POINT OF CARE TEST ENTER/EDIT ORDERABLES Final Result Performing Organization Address [facility] Co de Phone Number [facility] [address] [place] [address] [phone] * Influenza B (ID NOW Rapid Molecular) (10/29/2025 11:16 AM EST) Influenza B Negative Negative, Indeterminate [facility] Swab 10/29/2025 11:1 6 AM EST [facility] POINT OF CARE TEST ENTER/EDIT ORDERABLES Final Result Performing Organization Address [facility] de Phone Number [facility] [address] [place] [phone] documented in this encounter Visit Diagnoses Diagnosis COVID-19- Primary Cough in adult patient documented in this encounter Additional Health Concerns Assessment Noted Time PHQ-9 Depression Total Score: 11 01/09/2 025 4:08 PM EST documented as of this encounter Care Teams Drilling Superintendent Relationship Specialty Start Date End Date Alfredo Love MD [address] [place] [phone] PCP - General Internal Medicine 05/23/13 documented as of this encounter
--- OUTSIDE RECORDS SUMMARY | 2025-10-29 15:06 | XMS_ITS | Encounter Summary ---
Author Organization [employer] Address [address] [facility] 7 [place] [address] Care Team Providers Care Decorating Supervisor Name Role Phone Alfredo Love MD Primary Care Provider [phone] Reason for Visit * Reason Comments Med Refill Encounter Details Date Type Department Care Team (Late Contact Info) Description 04/29/2023 Refill [facility] [address] [place], [place] [phone] Joyce Farrell MD [address] [place], [place] [phone] Social History Tobacco Use Types Packs/Day Years [...] suspected to have Coronavirus/COVID-19? No / Unsure 04/12/2023 9:16 AM EDT documented as of this encounter Plan of Treatment Upcoming Encounters Date Type Department Care Team (Late Contact Info) Description 11/14/2025 11:00 AM EST Office Visit [facility] [address] [place], [place] [phone] Ford Silver DMD [address] [place], [place] [phone] 02/18/2026 9:30 AM EDT Office Visit [facility] [address] [place] [address] Gonzalez Love documented as of this encounter Visit Diagnoses Not on filedocumented in this encounter Care Teams Decorating Supervisor Relationship Specialty Start Date End Date Alfredo Love MD [address] [place] [address] PCP - General Internal Medicine 05/23/13 documented as of this encounter
--- OUTSIDE RECORDS SUMMARY | 2025-10-29 15:06 | XMS_ITS | Encounter Summary ---
Author Organization [employer] [facility] Address [address] [place] [address] [address] [place] [address] Care Team Providers Care Alumnae Secretary Name Role Phone Alfredo Love MD Primary Care Provider [phone] Encounter Details Date Type Department Care Team (Latest Contact Info) Description 01/22/2021 Abstract [facility] CONVERSIONS Dental, Provider, DDS Social History Tobacco Use Types Packs/Day Years Used Date Smoking Tobacco: Never Assessed Sex and Gender Information Value Date Recorded Sex Assigned at Male 09/07/2022 10:22 AM EDT Legal Sex Male 10:22 AM EDT Gender Identity Male 09/07/2022 10:22 AM EDT Sexual Orientation Straight 09/07/2022 10 :22 AM EDT documented as of this encounter Plan of Treatment Upcoming Encounters Date Type Department Care Team ( st Contact Info) Description 11/14/2025 11:00 AM EST Office Visit [facility] [address] [place] [address] Ford Silver DMD [address] [place], [place] 02/18/2026 9:30 AM EDT Office Visit [facility] [address] [place] [address] Gonzalez Love documented as of this encounter Visit Diagnoses Not on filedocumented in this encounter Care Teams Alumnae Secretary Relationship Specialty Start Date End Date Alfredo Love MD [address] [place], [place] PCP - General Internal Medicine 05/23/13 documented as of this encounter
--- OUTSIDE RECORDS SUMMARY | 2025-10-29 15:06 | XMS_ITS | Clinical Summary ---
Author Organization [employer] Address [address] [facility] 7[address] [place] [address] Care Team Providers Care Government Affairs Researcher Name Role Phone Alfredo Love MD Primary Care Provider [phone] Allergies Active Allergy Reactions Criticality Noted Date Comments Acetaminophen 03/09/2018 Other reaction(s): Liver function tests abnormal Oxycodone-Acetaminophen 12/06/2023 Medications nadolol (Corgard) 20 MG tablet Take 1 tablet by mouth at bed time. 05/25/20 22 Active Syringe/Needle, Disp, (B-D 3CC LUER-MEHUL SYR 25GX1 ) 25G X 1 3 ML miscIndications:Vi tamin B12 deficiency USE 1 SYRINGE BY INTRAMUSCULAR ROUTE ONCE A MONTH. FOR B12 INJECTIONS 1 each 01/05/20 23 Active Additional Information Patient not taking.Reported on 08/30/2025 B-D 3CC LUER-MEHUL SYR 25GX1 25G X 1 3 ML misc USE 1 SYRINGE BY INTRAMUSCULAR ROUTE ONCE A MONTH. FOR B12 INJECTIONS 11/08/19 23 Active sodium chloride (Will Nasal [place]) 0.65 % nasal sprayIndications:V iral syndrome 1-2 sprays on each nostril every 2-3 hours as needed for nasal congestion 30 mL 1 02/03/20 23 Active permethrin (Elimite) 5 % creamIndications:P ruritus APPLY TO SKIN FROM HAIRLINE TO TOES AND WASH OFF 8-10 HOURS LATER. 60 g 04/29/20 23 Active triamcinolone (Kenalog) 0.1 % cream Apply topically if needed in the morning and at bedtime for rash. Apply sparingly 30 g 04/29/20 Active cetirizine (ZyrTEC) 10 MG tablet Take 1 tablet (10 mg) by mouth in the morning. 90 tablet 04/29/20 Active Additional Information Patient not taking.Reported on 08/30/2025 hydrOXYzine HCl (Atarax) 10 MG tablet TAKE 1 TABLET BY MOUTH EVERY 8 HOURS IF NEEDED FOR ITCHING. 270 tablet 1 06/17/20 Active baclofen (Lioresal) 10 MG tabletIndications: Right hip pain Take 1 tablet (10 mg) by mouth 3 times daily. 30 tablet 11/25/19 24 Active Additional Information Patient not taking.Reported on 08/30/2025 naproxen (Naprosyn) 500 MG tabletIndications: Right hip pain,Primary osteoarthritis involving multiple joints Take 1 tablet (500 mg) by mouth with breakfast and with evening meal. 30 tablet 1 11/25/19 Active Additional Information Patient not taking.Reported on 08/30/2025 albuterol 108 (90 Base) MCG/ACT inhalerIndications :Acute bronchospasm due to viral infection INHALE 2 PUFFS EVERY 6 HOURS IF NEEDED FOR WHEEZING. 18 g 11 12/30/19 24 Active clotrimazole (Lotrimin) 1 % cream Apply topically 2 times daily. 40 g 1 07/05/20 24 Active Lancets miscIndications:Meyers bacute cough Use to test blood sugar 2 times daily 100 each 09/22/20 24 Active fluticasone (Flonase) 50 MCG/ACT nasal sprayIndications:C ough in adult Administer 1-2 sprays into each nostril Once per day. Shake gently. Before first use, prime pump. After use, clean tip and replace cap. 16 g 11 09/22/20 24 Active albuterol 108 (90 Base) MCG/ACT inhalerIndications :Cough in adult Inhale 2 puffs every 4 (four) hours if needed for wheezing. 18 g 09/22/20 24 Active hydroCHLOROthiazid e (HYDRODiuril) 25 MG tablet TAKE 1 TABLET BY MOUTH EVERY DAY IN THE MORNING 90 tablet 3 12/08/19 25 Active vardenafil (Levitra) 20 MG tablet Take 20 mg by mouth if needed each day. 09/06/20 Active glucose blood test stripIndications:H istory of hypoglycemia To check the FS daily. 100 each 12 01/10/20 25 026 Active Additional Information Patient not taking.Reported on 08/30/2025 cyanocobalamin ([facility] B-12) 500 MCG tabletIndications: Vitamin B12 deficiency Take 1 tablet (500 mcg) by mouth in the morning. 90 tablet 3 01/10/20 25 Active vardenafil (Levitra) 20 MG tablet Take 1 tablet (20 mg) by mouth if needed each day for erectile dysfunction. 10 tablet 01/10/20 25 Active Additional Information Patient not taking.Reported on 08/30/2025 glucose 4 g chewable tabletIndications: History of hypoglycemia Chew 4 tablets (16 g) if needed for low blood sugar. 50 tablet 12 01/10/20 25 Active Additional Information Patient not taking.Reported on 08/30/2025 vardenafil (Levitra) 20 MG tabletIndications: Other male erectile dysfunction TAKE 1 TABLET BY MOUTH EVERY DAY IF NEEDED FOR ERECTILE DYSFUNCTION 10 tablet 01/11/20 Active Additional Information Patient not taking.Reported on 08/30/2025 FREESTYLE LITE test stripIndications:T ype 2 diabetes mellitus without complication, without long-term current use of insulin ([facility]) Use to test blood sugar 1 times daily 100 each 12 01/18/20 25 Active Additional Information Patient not taking.Reported on 08/30/2025 hydrocortisone 2.5 % lotionIndications: Pruritic rash Apply topically 2 times daily. 118 mL 04/12/20 25 Active FREESTYLE LITE test stripIndications:T ype 2 diabetes mellitus without complication, without long-term current use of insulin ([facility]) 1 each by Other route Once per day. 100 each 11 04/12/20 25 Active Additional Information Patient not taking.Reported on 08/30/2025 Diclofenac Sodium 1 % gelIndications:Rig ht hip pain APPLY 2 GRAMS TOPICALLY TO THE AFFECTED AREA FOUR TIMES A DAY 100 g 1 04/13/20 25 Active Diclofenac Sodium 1 % gelIndications:Bun ion of great toe,Primary osteoarthritis involving multiple joints apply 2 gram by topical route 4 times every day to the affected area(s) Strength: 1 % 100 g 2 06/11/20 25 Active Nirmatrelvir&Riton avir 150/100 (Paxlovid, 150/100,) 10 x 150 MG & 10 x 100MG tablet therapy packIndications:CO VID-19 Take 1 Dose by mouth 2 times daily. 20 each 10/29/20 25 Active Active Problems Problem Noted Date Diagnosed Date Alcohol dependence in remission ([facility]/HCC) 2024 Bedbug bite 10/19/2025 Moderate episode of recurren t major depressive disorder ([facility]/HCC) 10/19/2025 Dupuytren contracture 04/12/2025 Hypoglycemia 01/05/2023 Primary osteoarthritis involving multiple joints 01/05/2023 Pruritic rash 01/05/2023 Assessment & Plan (03/22/2023 11:39 AM EDT): Patient with central swelling with surrounding erythema in circular formation on blanchable, no dermatographism on bilateral upper and lower extremities. Will supress with hydroxyzine x3 daily and Cetirizine. Will start on 20mg of prednisone for x5 days. Allergy testing referal, sent by Dr. Joyce 13 days ago, pending. 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 ([facility]/HCC) 03/13/2016 Hypertensive disorder 07/30/2015 Tubular adenoma of colon 02/24/2014 Overview (10/19/2025): repeat screening colonoscopy in 2024 Chronic hepatitis C virus infection ([facility]/HCC) Encounters Date Type Department Care Team Description 10/29/2025 11:00 AM EST Office Visit [facility] [address] [place] [address] Audrey Ross FNP COVID-19 (Primary Dx); Cough in adult patient 10/29/2025 Results Follow-Up [facility] [address] [place] [address] Audrey Ross FNP XR Chest 2 Views 10/29/2025 Travel 10/19/2025 2:00 PM EST Office Visit [facility] [address] [place] [address] Ford Silver, ILAN Full coverage crown needed for tooth at risk for fracture (Primary Dx) 09/21/2025 1:45 PM EST Office Visit [facility] [address] [place] [address] Ford Silver, ILAN Full coverage crown needed for tooth at risk for fracture (Primary Dx); Ill-fitting dentures 09/03/2025 Telephone [facility] [address] [place] [address] Ford Silver, ILAN 08/30/2025 9:00 AM EDT Office Visit [facility] [address] [place] [address] Ford Silver, DMD Full coverage crown needed for tooth at risk for fracture (Primary Dx) 08/24/2025 1:00 PM EDT Office Visit [facility] [address] [place] [address] Ford Silver, ILAN Full coverage crown needed for tooth at risk for fracture (Primary Dx); Secondary dental caries associated with failed or defective dental mormonism 08/16/2025 9:00 AM EDT Office Visit [facility] [address] [place] [address] Phuong Valdez Full coverage crown needed for tooth at risk for fracture (Primary Dx); Partial edentulism, unspecified edentulism class from Last 3 Months Immunizations Immunization Administration Dates Next Due Influenza High-dose Quadriva lent Preservative Free 08/31/2020 Influenza injectable quadriv alent IIV4 with preservative 08/22/2018,08/27/2016,09/06/2015 Influenza injectable quadriv alent preservative free 07/28/2023 Influenza, High Dose Seasona l, Preservative Free 09/22/2024,07/27/2017 Influenza, IIV3, injectable 08/30/2014 Pneumococcal Conjugate PCV 13 08/30/2018 Pneumococcal Conjugate PCV 20 03/30/2024 Tdap 11/25/2023,04/19/2013 Zoster, live 03/13/2016 Social History Tobacco Use Types Packs/Day Years [...] Orientation Straight 09/07/2022 10 :22 AM EDT Last Filed Vital Signs Vital Sign Reading Time Taken Comments Blood Pressure 124/85 10/29/2025 11:02 AM EST Pulse 70 10/29/2025 11:02 AM EST Temperature 36.8 C (98.2 F) 10/29/2025 11:02 AM EST Respiratory Rate 18 10/29/2025 11:02 AM EST Oxygen Saturation 97% 10/29/2025 11:02 AM EST Inhaled Oxygen Concentration - - Weight 77.6 kg (171 lb) 10/29/2025 11:02 AM EST Height 172.7 cm (5' 8 ) 04/12/2025 11:34 AM EDT Body Mass Index 26 04/12/2025 11:34 AM EDT Plan of Treatment Upcoming Encounters Date Type Department Care Team (Late st Contact Info) Description 11/14/2025 11:00 AM EST Office Visit [facility] [address] [place] [address] Ford Silver, DMD [address] [place] [address] 02/18/2026 9:30 AM EDT Office Visit [facility] [address] [place] [address] Gonzalez Love Health Maintenance Due Date Last Done Comments CT Colonography 1950 Dental X-Ray: Full Mouth 1950 FIT DNA/Cologuard 1950 FIT 1950 FOBT 1950 Sigmoidoscopy 1950 Diabetes: Foot Exam 1962 Eye Exam 1962 Diabetes: Urine Protein Screening 1971 Hepatitis A Vaccines (1 of 2 - Risk 2-dose series) 1971 RSV Patients and Patients Aged 60 years or older (1 - Risk 50-74 years 1-dose series) 2002 Hepatitis B Vaccines (1 of 3 - Risk 3-dose series) 2012 Zoster Vaccines (2 of 3) 05/08/2016 03/13/2016 Colonoscopy 12/11/2024 12/11/2019 Colorectal Cancer Screening 12/11/2024 Lipid Panel 03/30/2025 03/30/2024, 02/20/2022 COVID-19 Vaccine ( season) 2025 10/30/2021, 02/21/2021, 01/15/2021 Influenza Vaccine (#1) 2025 , 07/28/2023, 08/31/2020, Additional history exists Depression Monitoring 07/12/2025 01/09/2025, 025 Diabetes: Hemoglobin A1C 10/12/2025 025, 01/09/2025, 02/20/2022 Alcohol/Substance Use Screening 01/09/2026 01/09/2025 SDOH Screening 01/09/2026 01/09/2025 Dental Oral Exam 02/15/2026 08/16/2025, 08/02/2024 Dental Prophylaxis 02/15/2026 08/16/2025, 0 08/02/2024, 01/25/2024 Dental X-Ray: Bitewings 08/17/2026 08/16/20, 08/02/2024, 01/25/2024 Tobacco Screening 10/29/2026 10/29/2025 DTaP/Tdap/Td Vaccines (3 - Td or Tdap) 11/25/2033 11/25/2023, 04/19/2013 Pneumococcal Vaccine: 50+ Years Completed 03/30/2024, 08/30/2018 HIB Vaccines Aged Out No longer eligi ble based on patient's age to complete this topic HPV Vaccines Aged Out No longer eligi ble based on patient's age to complete this topic IPV Vaccines Aged Out No longer eligi ble based on patient's age to complete this topic Meningococcal B Vaccine Aged Out No l onger eligible based on patient's age to complete this topic Meningococcal Vaccine Aged Out No tabitha nannette eligible based on patient's age to complete this topic RSV under 20 months Aged Out No longe r eligible based on patient's age to complete this topic Rotavirus Vaccines Aged Out No longer eligible based on patient's age to complete this topic Procedures Procedure Name Priority Date/Time Associated Diagnosis Comments XR CHEST 2 VIEWS Routine 10/29/2025 12:1 7 PM EST Cough in adult patient POCT RAPID COVID ANTIGEN Routine 10/29/2025 11:16 AM EST Cough in adult patient POCT INFLUENZA A (ID NOW RAPID MOLECULAR) Routine 10/29/2025 11:16 AM EST Cough in adult patient POCT INFLUENZA B (ID NOW RAPID MOLECULAR) Routine 10/29/2025 11:16 AM EST Cough in adult patient CASE PRESENTATION, DETAILED AND EXTENSIVE TREATMENT PLANNING Routine 10/19/2025 2:00 PM EST Full coverage crown needed for tooth at risk for fracture 30 CORE BUILDUP, INCL ANY PINS WHEN REQ Routine 10/19/2025 2:00 PM EST Full coverage crown needed for tooth at risk for fracture 30 CROWN PREP Routine 10/19/2025 2:00 PM EST Full coverage crown needed for tooth at risk for fracture CASE PRESENTATION, DETAILED AND EXTENSIVE TREATMENT PLANNING Routine 09/21/2025 1:45 PM EST Full coverage crown needed for tooth at risk for fracture Ill-fitting dentures REPAIR CAST PARTIAL FRAMEWORK, MAX Routine 09/21/2025 1:45 PM EST Ill-fitting dentures 2 CROWN - PORCELAIN/CERAMIC Routine 09/21/2025 1:45 PM EST Full coverage crown needed for tooth at risk for fracture NO CHARGE VISIT Routine 08/30/2025 9:00 AM EDT Full coverage crown needed for tooth at risk for fracture CASE PRESENTATION, DETAILED AND EXTENSIVE TREATMENT PLANNING Routine 08/24/2025 1:00 PM EDT Full coverage crown needed for tooth at risk for fracture Secondary dental caries associated with failed or defective dental mormonism 2 CROWN PREP Routine 08/24/2025 1:00 PM EDT Full coverage crown needed for tooth at risk for fracture Secondary dental caries associated with failed or defective dental mormonism 2 CORE BUILDUP, INCL ANY PINS WHEN REQ Routine 08/24/2025 1:00 PM EDT Full coverage crown needed for tooth at risk for fracture Secondary dental caries associated with failed or defective dental mormonism 30 INTRAORAL - PERIAPICAL FIRST RADIOGRAPHIC IMAGE Routine 08/24/2025 1:00 PM EDT Full coverage crown needed for tooth at risk for fracture Secondary dental caries associated with failed or defective dental mormonism LIMITED ORAL EVALUATION - PROBLEM FOCUSED Routine 08/24/2025 1:00 PM EDT Full coverage crown needed for tooth at risk for fracture Secondary dental caries associated with failed or defective dental mormonism PERIODIC ORAL EVALUATION - ESTABLISHED PATIENT Routine 08/16/2025 9:00 AM EDT Full coverage crown needed for tooth at risk for fracture Partial edentulism, unspecified edentulism class CASE PRESENTATION, DETAILED AND EXTENSIVE TREATMENT PLANNING Routine 08/16/2025 9:00 AM EDT Full coverage crown needed for tooth at risk for fracture Partial edentulism, unspecified edentulism class INTRAORAL - PERIAPICAL EACH ADDITIONAL RADIOGRAPHIC IMAGE Routine 08/16/2025 9:00 AM EDT Full coverage crown needed for tooth at risk for fracture Partial edentulism, unspecified edentulism class INTRAORAL - PERIAPICAL EACH ADDITIONAL RADIOGRAPHIC IMAGE Routine 08/16/2025 9:00 AM EDT Full coverage crown needed for tooth at risk for fracture Partial edentulism, unspecified edentulism class INTRAORAL - PERIAPICAL FIRST RADIOGRAPHIC IMAGE Routine 08/16/2025 9:00 AM EDT Full coverage crown needed for tooth at risk for fracture Partial edentulism, unspecified edentulism class BITEWINGS - 4 RADIOGRAPHIC IMAGES Routine 08/16/2025 9:00 AM EDT Full coverage crown needed for tooth at risk for fracture Partial edentulism, unspecified edentulism class Full PROPHYLAXIS - ADULT Routine 08/16/2025 9:00 AM EDT Full coverage crown needed for tooth at risk for fracture Partial edentulism, unspecified edentulism class POCT GLYCATED HEMOGLOBIN, TOTAL Routine 04/12/2025 12:41 PM EDT Type 2 diabetes mellitus without complication, without long-term current use of insulin (CMS/HCC) LIPID PANEL, STANDARD Routine 03/30/2024 11:35 AM EDT Primary hypertension Hepatic cirrhosis due to chronic hepatitis C infection (CMS/HCC) HM COLONOSCOPY Routine 12/11/2019 from Last 3 Months or Most Recently Relevant to Health Maintenance Results * XR Chest 2 Views (10/29/2025 12:17 PM EST) Anatomical Region Laterality Modality Chest Radiographic Sandhya ging 10/29/2025 12:1 7 PM EST Narrative 10/29/2025 12:36 [place] [id number] XRay Report Signed Patient: Yovanny Rojo MR#: [id number] : 1950 Acct:[id number] Age/Sex: 75 / M ADM Date: 10/29/25 Loc: [facility]X Attending Dr: Audrey CARCAMO Ordering Physician: Audrey Ross Date of Service: 10/29/25 Procedure(s): XR chest 2V Accession Number(s): [id number] cc: Audrey Ross Reason for Exam: 75 [...] 10/29/25 1233 DD/ 1217 TD/TT: 10/29/25 1224 Waybill Clerk: Procedure Note Donotuseinterpreter, Image - 10/29/2025 [place] [address] XRay Report Signed Patient: Yovanny Rojo AMR#: [id number] : 2Acct:[id number] Age/Sex: 75 / MADM Date: 10/29/25 Loc: HO.HHCX Attending Dr: Audrey CARCAMO Ordering Physician: Audrey Ross Date of Service: 10/29/25 Procedure(s): XR chest 2V Accession Number(s): [id number] cc: Audrey Ross KENNEL AIDE Reason for Exam: 75 y.o male with [...] 10/29/25 1233 DD/ 1217 TD/TT: 10/29/25 1224 Waybill Clerk: Result [facility] IMG XR PROCEDURES Edited Resu lt - Final * Influenza B (ID NOW Rapid Molecular) (10/29/2025 11:16 AM EST) Pathologist [facility] Influenza B Negative Negative, Indeterminate [facility] Swab 10/29/2025 11:1 6 AM EST [facility] POINT OF CARE TEST ENTER/EDIT ORDERABLES Final Result Performing Organization Address [facility]/ZIP Co de Phone Number [facility] [address] [place] [phone] * Influenza A (ID NOW Rapid Molecular) (10/29/2025 11:16 AM EST) Pathologist [facility] Influenza A Negative Negative, Indeterminate [facility] Swab 10/29/2025 11:1 6 AM EST Result [facility] POINT OF CARE TEST ENTER/EDIT ORDERABLES Final Result Performing Organization Address [facility] Co de Phone Number [facility] [address] [place] [phone] * (ABNORMAL) POCT Rapid COVID Ag (10/29/2025 11:16 AM EST) Pathologist [facility] Rapid COVID Ag Positive Swab 10/29/2025 11:1 6 AM EST Result [facility] POINT OF CARE TEST ENTER/EDIT ORDERABLES Final Result * POCT HGB A1C (04/12/2025 12:41 PM EDT) [facility] Hemoglobin A1C 5.4 4.0 - 6.0 % QC Media Lot # [id number] Lot# Expiration Date Blood 04/12/2025 12:4 1 PM EDT Alfredo Love MD POINT OF CARE TEST ENTER/ED IT ORDERABLES Final Result * (ABNORMAL) Lipid Panel, Standard (03/30/2024 11:35 AM EDT) Triglycerides 97 <150 mg/dL [facility] Comment:Desirable Triglyceri de: less than 150 mg/dLBorderline High Triglyceride 150-199 mg/dLHigh Triglyceride: 200-499 mg/dLVery High Triglyceride: greater than or equal to 5OO mg/dL Cholesterol 174 <200 mg/dL [facility] Comment:Desirable Cholestero l: less than 200 mg/dLBorderline High Cholesterol: 200-239 mg/dLHigh Cholesterol: greater than 239 mg/dL LDL Cholesterol Calculated 105(H) <100 mg/dL [facility] Comment:Desirable LDL: less than 100 mg/dLNear Optimal/Above Optimal LDL: 110- 129 mg/dLBorderline High LDL: 130-159 mg/dLHigh LDL: 160-189 mg/dLVery High LDL: greater than or equal to 190 mg/dL HDL Cholesterol 50 >40 mg/dL [facility] Comment:Desirable HDL: great er than 40 mg/dL Note: This HDL assay may give artificially low results in patients with liver disease. Blood Venous blood specimen / Unknown 03/30/2024 11:35 AM EDT 03/30/2024 2:20 PM EDT us Alfredo Love MD LAB BLOOD ORDERABLES Final Result [facility] [address] [place] [phone] [phone] * Hm Colonoscopy (12/11/2019) Colonoscopy Normal Normal Narrative Zoie Solano - 12/11/2019 Recommended 5 year follow up Historical Provider HEALTH MAINTENANCE Final Result from Last 3 Months or Most Recently Relevant to Health Maintenance Insurance [facility] [employer] OPT[employer] (HMO D-SNP) DENTAL [facility] Care Teams Government Affairs Researcher Relationship Specialty Start Date End Date Alfredo Love MD [address] [place] [phone] PCP - General Internal Medicine 05/23/13
--- OUTSIDE RECORDS SUMMARY | 2025-10-29 15:06 | XMS_ITS | Encounter Summary ---
Author Organization [facility] Address [address] [facility] [address] [place] [address] Care Team Providers Care Ethnoarchaeology Professor Name Role Phone Alfredo Love MD Primary Care Provider [phone] Encounter Details Date Type Department Care Team (Latest Contact Info) Description 02/28/2019 Abstract [facility] CONVERSIONS Dental, Provider, DDS Social History [...] Upcoming Encounters Date Type Department Care Team ([facility] st Contact Info) Description 11/14/2025 11:00 AM EST Office Visit [facility] [address] [place] [address] Ford Silver DMD [address] [place] [address] 02/18/2026 9:30 AM EDT Office Visit [facility] [address] [place] [address] Gonzalez Love documented as of this encounter Visit Diagnoses Not on filedocumented in this encounter Care Teams Ethnoarchaeology Professor Relationship Specialty Start Date End Date Alfredo Love MD [address] [place] [address] PCP - General Internal Medicine 05/23/13 documented as of this encounter
--- OUTSIDE RECORDS SUMMARY | 2025-10-29 15:06 | XMS_ITS | Encounter Summary ---
Author Organization [employer] Address [address] [place] [address] [address] [place] [address] Care Team Providers Care Director Social Name Role Phone Alfredo Love MD Primary Care Provider [phone] Reason for Visit * Reason Comments Med Refill Encounter Details Date Type Department Care Team (Late Contact Info) Description 01/05/2023 Refill [facility] [address] [place], [place] [phone] Alfredo Love MD [address] [place], [place] [phone] Vitamin B12 deficiency (Primary Dx) Social History Tobacco Use Types Packs/Day Years Used Date Smoking Tobacco: Never Sex and Gender Information Value [...] suspected to have Coronavirus/COVID-19? No / Unsure 01/08/2023 7:59 AM EST documented as of this encounter Plan of Treatment Upcoming Encounters Date Type Department Care Team (Late Contact Info) Description 11/14/2025 11:00 AM EST Office Visit [facility] [address] [place], [place] [phone] Ford Silver DMD [address] [place], [place] [phone] 02/18/2026 9:30 AM EDT Office Visit [facility] [address] [place] [address] Gonzalez Love documented as of this encounter Visit Diagnoses Diagnosis Vitamin B12 deficiency- Primary Other B-complex deficiencies documented in this encounter Care Teams Director Social Relationship Specialty Start Date End Date Alfredo Love MD [address] [place] [address] PCP - General Internal Medicine 05/23/13 documented as of this encounter
--- OUTSIDE RECORDS SUMMARY | 2025-10-29 15:06 | XMS_ITS | Encounter Summary ---
Author Organization [employer] Address [address] [place] [address] 7 [place] [address] Care Team Providers Care Trade Promotion Analyst Name Role Phone Alfredo Love MD Primary Care Provider [phone] Reason for Visit * Reason Comments Med Refill Encounter Details Date Type Department Care Team (Late Contact Info) Description 07/17/2024 Refill [facility] MED & PEDS [address] [place], [place] [phone] Alfredo Love MD 505 [place], [place] [phone] Right hip pain; Primary osteoarthritis involving multiple joints Social History Tobacco Use Types Packs/Day Years Used Date Smoking Tobacco: Never Passive Smoke Exposure: Never Smokeless Tobacco: Never Sex and Gender [...] Description 11/14/2025 11:00 AM EST Office Visit [facility] ADULT DENTAL [address] [place], [place] [phone] Ford Silver DMD 505 [place], [place] [phone] 02/18/2026 9:30 AM EDT Office Visit [facility] ADULT DENTAL [address] [place], [place] [phone] Gonzalez Love documented as of this encounter Visit Diagnoses Diagnosis Right hip pain Pain in joint, pelvic region and thigh Primary osteoarthritis involving multiple joints documented in this encounter Care Teams Trade Promotion Analyst Relationship Specialty Start Date End Date Alfredo Love MD [address] [place] [address] PCP - General Internal Medicine 05/23/13 documented as of this encounter
--- OUTSIDE RECORDS SUMMARY | 2025-10-29 15:06 | XMS_ITS | Encounter Summary ---
Author Organization [employer] Address [address] [facility] 7 [place] [address] Care Team Providers Care Electrical Controls Technician Name Role Phone Alfredo Love MD Primary Care Provider [phone] Reason for Visit * Reason Onset Date Comments triage 02/02/2023 Encounter Details Date Type Department Care Team ([facility] st Contact Info) Description 02/02/2023 Telephone [facility] MED[facility]INE [address] [place] [address] Alfredo Love MD 505 [place], [place] [phone] triage Social History Tobacco Use Types Packs/Day [...] to be seen by provider today in [facility] , Pt agrees with disposition and home [...] Description 11/14/2025 11:00 AM EST Office Visit [facility] ADULT DENTAL 505 [place] [address] Ford Silver DMD 505 [place] [address] 02/18/2026 9:30 AM EDT Office Visit [facility] ADULT DENTAL 505 [place] [address] Gonzalez Love documented as of this encounter Visit Diagnoses Not on filedocumented in this encounter Care Teams Electrical Controls Technician Relationship Specialty Start Date End Date Alfredo Love MD 505 [place] [address] PCP - General Internal Medicine 05/23/13 documented as of this encounter
--- OUTSIDE RECORDS SUMMARY | 2025-10-29 15:06 | XMS_ITS | Encounter Summary ---
Author Organization [employer] Address [address] [place] [address] 7 [place] [address] Care Team Providers Care Warehouse Pricing And Inventory Clerk Name Role Phone Alfredo Love MD Primary Care Provider [phone] Encounter Details Date Type Department Care Team (Late st Contact Info) Description 09/06/2023 Abstract [facility] MEDICINE 230 [place] [address] Alfredo Love MD 505 [place] [address] Social History Tobacco Use Types Packs/Day Years [...] Description 11/14/2025 11:00 AM EST Office Visit [facility] ADULT DENTAL 505 [place] [address] Ford Silver, ILAN 505 [place] [address] 02/18/2026 9:30 AM EDT Office Visit [facility] ADULT DENTAL 505 [place] [address] Gonzalez Love documented as of this encounter Procedures Procedure Name Priority Date/Time Associated Diagnosis Comments HM COLONOSCOPY Routine 12/11/2019 documented in this encounter Results * Hm Colonoscopy (12/11/2019) Colonoscopy Normal Normal Narrative Zoie Solano - 12/11/2019 Recommended 5 year follow up Historical Provider HEALTH MAINTENANCE Final Result documented in this encounter Visit Diagnoses Not on filedocumented in this encounter Care Teams Warehouse Pricing And Inventory Clerk Relationship Specialty Start Date End Date Alfredo Love MD [address] [place] [address] PCP - General Internal Medicine 05/23/13 documented as of this encounter
--- OUTSIDE RECORDS SUMMARY | 2025-10-29 15:06 | XMS_ITS | Encounter Summary ---
Author Organization [employer] Address [address] [facility] 7t [place] [address] Care Team Providers Care Wide Area Network Systems Administrator Name Role Phone Alfredo Love MD Primary Care Provider [phone] Reason for Visit * Reason Comments Med Refill Encounter Details Date Type Department Care Team (Late st Contact Info) Description 04/29/2023 Refill [facility] 230 [place], [place] [phone] Gavin Patton MD 230 [place] [address] Social History Tobacco Use Types Packs/Day Years [...] Description 11/14/2025 11:00 AM EST Office Visit [facility] ADULT [facility] 505 [place], [place] [phone] Ford Silver, ILAN 505 [place], [place] [phone] 02/18/2026 9:30 AM EDT Office Visit [facility] ADULT DENT[facility] 505 [place] [address] Gonzalez Love documented as of this encounter Visit Diagnoses Not on filedocumented in this encounter Care Teams Wide Area Network Systems Administrator Relationship Specialty Start Date End Date Alfredo Love MD 505 [place] [address] PCP - General Internal Medicine 05/23/13 documented as of this encounter
--- OUTSIDE RECORDS SUMMARY | 2025-10-29 15:06 | XMS_ITS | Encounter Summary ---
Author Organization [employer] [facility] Address [address] [place] [address] 7 [place] [address] Care Team Providers Care Account Consultant Name Role Phone Alfredo Love MD Primary Care Provider [phone] Encounter Details Date Type Department Care Team (Latest Contact Info) Description 08/18/2022 Abstract [facility] CONVERSIONS Dental, Provider, DDS Social History [...] Description 11/14/2025 11:00 AM EST Office Visit [facility] ADULT [facility] 505 [place] [address] Ford Silver DMD [address] [place], [place] 02/18/2026 9:30 AM EDT Office Visit [facility] AD[facility] 505 [place] [address] Gonzalez Love documented as of this encounter Visit Diagnoses Not on filedocumented in this encounter Care Teams Account Consultant Relationship Specialty Start Date End Date Alfredo Love MD 505 [place], [place] PCP - General Internal Medicine 05/23/13 documented as of this encounter
--- OUTSIDE RECORDS SUMMARY | 2025-10-29 15:07 | XMS_ITS | Encounter Summary ---
Author Organization [employer] Address [address] [facility] [address] 7[address] [place] [address] Care Team Providers Care Bowling Ball Patcher Name Role Phone Alfredo Love MD Primary Care Provider [phone] Encounter Details Date Type Department Care Team (Late st Contact Info) Description 01/17/2025 Orders Only [facility] MEDICINE [address] [place] [address] Alfredo Love MD 505 [place], [place] [phone] Type 2 diabetes mellitus without complication, without long-term current use of insulin ([facility]) (Primary Dx) Social History Tobacco Use Types Packs/Day Years Used Date Smoking Tobacco: Never Passive Smoke Exposure: Never Smokeless Tobacco: Never Depression Answer Date Recorded Patient Health Questionnaire-9 [...] 11/14/2025 11:00 AM EST Office Visit [facility] ADULT DENT[facility] 505 [place] [address] Ford Silver, ILAN 505 [place] [address] 02/18/2026 9:30 AM EDT Office Visit [facility] ADULT [facility] 505 [place] [address] Gonzalez Love documented as of this encounter Visit Diagnoses Diagnosis Type 2 diabetes mellitus without complication, without long-term current use of insulin (HCC)- Primary documented in this encounter Additional Health Concerns Assessment Noted Time PHQ-9 Depression Total Score: 11 025 4:08 PM EST documented as of this encounter Care Teams Bowling Ball Patcher Relationship Specialty Start Date End Date Alfredo Love MD 505 [place] [address] PCP - General Internal Medicine 05/23/13 documented as of this encounter
--- OUTSIDE RECORDS SUMMARY | 2025-10-29 15:07 | XMS_ITS | Encounter Summary ---
Author Organization [employer] Address [address] 7t [place] [address] Care Team Providers Care Manager Stars Name Role Phone Alfredo Love MD Primary Care Provider [phone] Encounter Details Date Type Department Care Team ([facility] st Contact Info) Description 10/29/2025 Results Follow-Up [facility] 230 [place], [place] [phone] [facility] 230 [place] [address] XR Chest 2 Views Social History Tobacco Use Types Packs/Day Years [...] AM EDT documented as of this encounter Miscellaneous Notes * Telephone Encounter - Juanita Matthews RN - 10/29/2025 1:40 PM EST TC placed to pt and the message below was discussed. ----- Message from [facility] sent at 10/29/2025 12:40 PM EST ----- Hi! Would someone mind letting Yovanny know that his chest xray was negative but if his cough persists I would advise a follow up with Dr. Love. Thank you! ----- Message ----- From: [place] Solano Results In Sent: 10/29/2025 12:37 PM EST [facility] [place] documented in this encounter Plan of Treatment Upcoming Encounters Date Type Department Care Team (Late st Contact Info) Description 11/14/2025 11:00 AM EST Office Visit [facility] ADULT DENTAL [address] [place] [address] Ford Silver, ILAN 505 [place] [address] 02/18/2026 9:30 AM EDT Office Visit [facility] ADULT DENTAL [address] [place] [address] Gonzalez Love documented as of this encounter Visit Diagnoses Not on filedocumented in this encounter Additional Health Concerns Assessment Noted Time PHQ-9 Depression Total Score: 11 01/09/2 025 4:08 PM EST documented as of this encounter Care Teams Manager Stars Relationship Specialty Start Date End Date Alfredo Love MD [address] [place] [address] PCP - General Internal Medicine 05/23/13 documented as of this encounter
--- OUTSIDE RECORDS SUMMARY | 2025-10-29 15:07 | XMS_ITS | Encounter Summary ---
Author Organization [employer] Address [address] [facility] [address] 7t [place] [address] Care Team Providers Care Customer Engagement Analyst Name Role Phone Alfredo Love MD Primary Care Provider [phone] Encounter Details Date Type Department Care Team (Latest Contact Info) Description 10/29/2025 Travel Social History Tobacco Use Types Packs/Day Years [...] Description 11/14/2025 11:00 AM EST Office Visit [facility] ADULT DENTAL 505 [place] [address] Ford Silver, ILAN 505 [place] [address] 02/18/2026 9:30 AM EDT Office Visit [facility] ADULT DENTAL 505 [place] [address] Gonzalez Love documented as of this encounter Visit Diagnoses Not on filedocumented in this encounter Additional Health Concerns Assessment Noted Time PHQ-9 Depression Total Score: 11 01/09/2 025 4:08 PM EST documented as of this encounter Care Teams Customer Engagement Analyst Relationship Specialty Start Date End Date Alfredo Love MD 505 [place] [address] PCP - General Internal Medicine 05/23/13 documented as of this encounter
--- OUTSIDE RECORDS SUMMARY | 2025-10-29 15:07 | XMS_ITS | Encounter Summary ---
Author Organization [employer] Address [address] [place] [address] 7 [place] [address] Care Team Providers Care Peanut Shaker Name Role Phone Alfredo Love MD Primary Care Provider [phone] Encounter Details Date Type Department Care Team (Late Contact Info) Description 12/28/2023 Orders Only [facility] MED & PEDS [address] [place], [place] [phone] Alfredo Love MD 505 [place], [place] [phone] Social History Tobacco Use Types Packs/Day Years [...] Description 11/14/2025 11:00 AM EST Office Visit [facility] ADULT DENTAL 505 [place], [place] [phone] Ford Silver DMD 505 [place], [place] [phone] 02/18/2026 9:30 AM EDT Office Visit [facility] ADULT DENTAL 505 [place], [place] [phone] Gonzalez Love documented as of this encounter Visit Diagnoses Not on filedocumented in this encounter Care Teams Peanut Shaker Relationship Specialty Start Date End Date Alfredo Love MD [address] [place] [address] PCP - General Internal Medicine 05/23/13 documented as of this encounter
--- OUTSIDE RECORDS SUMMARY | 2025-10-29 15:07 | XMS_ITS | Clinical Summary ---
Author Organization [facility] Address [address] [place] [address] Phone Care Team Providers Care Route Agent Name Role Phone Alfredo Love MD Primary Care Provider [phone] Allergies No known active allergies Medications albuterol HFA (PROAIR HFA ; PROVENTIL HFA ; VENTOLIN HFA) 90 mcg/actuation inhaler Inhale 2 puffs by mouth every 6 (six) hours if needed for wheezing. 4 Active blood sugar diagnostic (FreeStyle Lite Strips) test strip USE TO TEST BLOOD SUGAR ONCE A DAY 5 Active carboxymethylce llulose (REFRESH PLUS) 0.5 % ophthalmic solution Administer 1 drop into both eyes 2 (two) times a day. 5 Active Vitamin B-12 500 mcg tablet take 1 tablet (500 mcg) by mouth in the morning. 5 Active diclofenac (VOLTAREN) 1 % topical gel APPLY 2 GRAMS TOPICALLY TO THE AFFECTED AREA FOUR TIMES A DAY 5 Active hydroCHLOROthia zide (HYDRODIURIL) 25 mg tablet Take 1 tablet (25 mg total) by mouth 1 (one) time each day in the morning. 5 Active fluticasone propionate (FLONASE) 50 mcg/actuation nasal spray PLEASE SEE ATTACHED FOR DETAILED DIRECTIONS 5 Active hydrocortisone 2.5 % lotion Apply 1 Application topically 2 (two) times a day. APPLY TO AFFECTED AREA 5 Active nadoloL (CORGARD) 20 mg tablet Take 1 tablet (20 mg total) by mouth 1 (one) time each day. 5 Active vardenafiL (LEVITRA) 20 mg tablet TAKE 1 TABLET 1 HOUR BEFORE SEXUAL RELATIONS ONCE DAILY NEEDED. Active clotrimazole (LOTRIMIN) 1 % cream Apply topically 2 (two) times a day. 30 g 3 5 10/04/20 25 Encounters Date Type Department Care Team Description 09/04/2025 3:00 PM EDT Consult [facility] [place] [address] [place] [phone] James Silva, DPM Tinea pedis of both feet (Primary Dx); Bunion; Dermatophytosis of nail; Diabetic mononeuropathy simplex (CMS/[facility] V24, CMS/[facility] V28); Type II diabetes mellitus with peripheral circulatory disorder (CMS/HCC V24, CMS/[facility] V28); Pain in toe of left foot; Pain in toe of right foot [M79.674] from Last 3 Months Social History Tobacco Use Types Packs/Day Years Used Date Smoking Tobacco: Never Assessed Sex and Gender Information Value Date Recorded Sex Assigned at Not on file Legal Sex Male 7:23 AM EDT Gender Identity Not on file Sexual Orientation Not on file Plan of Treatment Health Maintenance Due Date Last Done Comments Colorectal Cancer Screening: Colonoscopy 1952 Diabetes: Annual GFR (Glomerular Filtration Rate) 1952 Diabetes: Annual Foot Exam 1962 Diabetes: Annual Retina Eye Exam 1962 RSV Immunization Adult Patients (1 - Risk 50-74 years 1-dose series) 2002 Zoster Vaccines (2 of 3) 05/08/2016 03/13/2016 Depression Screening 11/08/2024 Abdominal Aortic Aneurysm (AAA) Screen 06/13/2025 Cholesterol Screening (Lipid Panel) 06/13/2025 Falls Risk Assessment 06/13/2025 Hepatitis C Screening 06/13/2025 Medicare Annual Wellness Visit 06/13/2025 Social Influencers of Health Screening 06/13/2025 COVID-19 Vaccine ( season) 2025 10/30/2021, 02/21/2021, 01/15/2021 Influenza Vaccine (#1) 2025 4, 07/28/2023, 08/31/2020, Additional history exists Diabetes: Annual Urine Albumin-Creatinine Ratio (uACR) 09/04/2025 Diabetes: Blood Sugar Control Test (HGBA1C) 09/04/2025 DTaP,Tdap,and Td Vaccines (3 - Td or Tdap) 11/25/2033 11/25/2023, 04/19/2013 Pneumococcal Vaccine: 50+ Years Completed 03/30/2024, 08/30/2018 HIB Vaccines Aged Out No longer eligi ble based on patient's age to complete this topic HPV Vaccines Aged Out No longer eligi ble based on patient's age to complete this topic Hepatitis A Vaccines Aged Out No long er eligible based on patient's age to complete this topic Hepatitis B Vaccines Aged Out No long er eligible based on patient's age to complete this topic IPV Vaccines Aged Out No longer eligi ble based on patient's age to complete this topic MMR Vaccines Aged Out No longer eligi ble based on patient's age to complete this topic Meningococcal ACWY Vaccine Aged Out N o longer eligible based on patient's age to complete this topic Meningococcal B Vaccine Aged Out No l onger eligible based on patient's age to complete this topic RSV Immunization Patients Under 20 months Aged Out No longer eligible based on patient's age to complete this topic Varicella Vaccines Aged Out No longer eligible based on patient's age to complete this topic Procedures Procedure Name Priority Date/Time Associated Diagnosis Comments XR FOOT 3+ VIEWS BILAT Routine 09/04/2025 2:58 PM EDT Bunion from Last 3 Months Results * XR Foot 3+ Views bilat (09/04/2025 2:58 PM EDT) Anatomical Region Laterality Modality Lower Extremities, Foot Bilateral Computed Radiography Narrative 09/04/2025 6:06 PM EDT Right foot 3 views No fracture. No radiopaque foreign joint spaces normal Foot position rectus Normal talus navicular position normal calcaneal inclination normal symes line talus navicular joint to calcaneal cuboid joint Left foot 3 views No fracture. No radiopaque foreign joint spaces normal Foot position rectus Normal talus navicular position normal calcaneal inclination normal symes line talus navicular joint to calcaneal cuboid joint us James Silva DPM IMG XR PROCEDURES Final R esult from Last 3 Months Insurance [employer] MEDICARE Member Subscriber Plan / Payer (Ef fective 2017-Present) Name:Maruqez Yovanny Relation to Subscriber:Self Name:Lazaro Yovanny Dueñas Payer ID:[id number] Group ID:[id number] Type:Not on file Address: [place] [address] [address] [address] Care Teams Route Agent Relationship Specialty Start Date End Date Alfredo Love MD [address] [place] [address] PCP - General Internal Medicine 06/13/25
== END 2025-10-29 11:49 | disposition home or self-care (01) ==
LOC: HO.HHCX 11:48
PROVIDERS: PCP Registered Nurse; Visit Provider Registered Nurse
DX: R05.3 Chronic cough (principal)
CPT/HCPCS: 71046

== ENCOUNTER → 2025-10-29 11:53 | Outpatient (BNV) | payer OTHER, SELFPAY | PROVIDERS: PCP Registered Nurse; Visit Provider Radiology Diagnostic Radiology | DX: R05.3 Chronic cough (principal) | CPT/HCPCS: 71046 ==